=== PATIENT | female | born 1990 | race Caucasian/White ===

== ENCOUNTER 2017-05-23 02:20 | Emergency (ER) | payer OTHER ==
[~2017-05-23] VITALS: Ht 165.1 cm; Wt 120.6 kg
[~2017-05-23 02:20] MED LIST: BACTRIM DS1 TAB OR; CIPRO500 MG OR; IBUPROFEN600 MG PO; LORTAB 10 PO; LORTAB 10-325 M1 TAB PO; LORTAB5 OR; NO; NO MEDS; PRENATA5 OR; PYRIDIUM200 MG OR; TORADOL PO; TYLENOL500 MG OR
[2017-05-23 03:22] LABS: HEMATOCRIT 43.8 % (37.0-47.0); IMMATURE GRANULOCYTES 0.3 % (0.0-1.0); MEAN CELL VOLUME 80.4 fL CALC (80.0-100.0); MEAN CORPUSCULAR HGB 25.7 pG CALC (26.0-32.0); NEUT# 6.85 thou/uL (2.00-7.15); RED BLOOD COUNT 5.45 mill/uL (4.20-5.60); RED CELL DISTRI WIDTH 13.6 % (11.5-15.5)
[2017-05-23 03:22] LABS: URINE BILIRUBIN - DIPSTICK NEGATIVE (NEGATIVE); URINE BLOOD DIPSTICK LARGE (NEGATIVE); URINE CLARITY CLEAR; URINE COLOR YELLOW; URINE GLUCOSE - DIPSTICK NEGATIVE (NEGATIVE); URINE KETONE NEGATIVE (NEGATIVE); URINE LEUK ESTERASE NEGATIVE (NEGATIVE); URINE NITRITE - DIPSTICK NEGATIVE (Negative); URINE PROTEIN - DIPSTICK NEGATIVE (NEG-TRACE); URINE SPECIFIC GRAVITY >=1.030; URINE UROBILINOGEN - DIPSTICK 0.2 E.U./dL (0.2)
[2017-05-23 03:35] LABS: ALBUMIN 4.4 g/dL (3.2-5.0); ALKALINE PHOSPHATASE 108 u/l (38-126); ANION GAP 18 (6-22 (CALC)); BILIRUBIN, TOTAL 0.6 mg/dL (0.0-1.4); BUN 11 mg/dL (7-17); BUN/CREATININE RATIO 13 (12-20 (CALC)); CALCIUM 9.8 mg/dL (8.4-10.2); CARBON DIOXIDE 24 mmol/l (22-30); CHLORIDE 105 mmol/l (95-108); CREATININE 0.8 mg/dL (0.5-1.0); GFR > 60 ML/MIN (>=60 (CALC)); GFR FOR AFR.AMER. > 60 ML/MIN (>=60 (CALC)); GLUCOSE 108 mg/dL (65-105); POTASSIUM 3.9 mmol/l (3.5-5.1); SGOT/AST 52 u/l (14-36); SGPT/ALT 69 u/l (9-52); SODIUM 143 mmol/l (137-146); TOTAL PROTEIN 7.6 g/dL (6.3-8.2)
[2017-05-23 04:24] LABS: URINE BACTERIA FEW hpf; URINE RBC 25-50 RBC/hpf (0-5); URINE SQUAMOUS EPITHELIAL CELL FEW EPI/hpf (0-FEW); URINE WBC 0-2 WBC/hpf (0-5)
[2017-05-23] MEDS ORDERED: PERCOCET 5/325M1 TAB PO (05:06)
[2017-05-23] MEDS ORDERED: IBUPROFEN600 MG PO (05:06)
[2017-05-23 05:20] VITALS: BP 122/75
== END 2017-05-23 05:22 | disposition left against medical advice (07) | DRG 694 ==
LOC: ED 02:20
PROVIDERS: Emergency Medicine
DX: N13.2 Hydronephrosis with renal and ureteral calculous obstruction (principal); Z87.442 Personal history of urinary calculi; Z91.19 Patient's noncompliance with other medical treatment and regimen

== ENCOUNTER 2021-05-26 07:29 | Emergency (ER) | payer MEDICAID ==
[~2021-05-26] VITALS: Ht 165.1 cm; Wt 127.0 kg
[~2021-05-26 07:29] MED LIST changes: +PERCOCET 5/325M1 TAB PO
[2021-05-26] MEDS ORDERED: CONZIP100 MG PO (10:51)
[2021-05-26] MEDS ORDERED: ZOFRAN4 M1 PO (10:51)
[2021-05-26 10:55] VITALS: BP 122/70
== END 2021-05-26 10:55 | disposition home or self-care (01) ==
LOC: ED 07:29
DX: S32.2XXA Fracture of coccyx, initial encounter for closed fracture (principal); E66.9 Obesity, unspecified; W10.9XXA Fall (on) (from) unspecified stairs and steps, initial encounter; Y92.009 Unspecified place in unspecified non-institutional (private) residence as the place of occurrence of the external cause